=== PATIENT | male | born 1970 | race Caucasian/White ===

== ENCOUNTER 2017-05-21 09:46 | Inpatient (IN) | payer MEDICAID ==
[~2017-05-21] VITALS: Ht 172.7 cm; Wt 51.3 kg
[2017-05-21] MEDS ORDERED: LORAZEPAM INJ 2 MG/ML VIAL ONE ×2 (09:56→11:03)
--- NOTE | 2017-05-21 09:59 | NUR ---
[id number] FROM [address]: S/P POSSIBLE SEIZURE, UNWITNESSED. Hx OF SEIZURES. A/OX 3, BREATHING EVEN AND UNLABORED, NO SOB. VITALS STABLE, DISHEVELED APPEARANCE. NAD, SAFETY AND COMFORT MEASURES IN PLACE. AWAITING MD ORDERS.
[2017-05-21] MEDS ORDERED: LORAZEPAM INJ 2 MG/ML VIAL IV ONE ×2 (10:00→11:00)
--- NOTE | 2017-05-21 10:00 | NUR ---
NEW IV STARTED ON RFA, 18G. BLOOD DRAWN AND SENT TO LAB.
[2017-05-21 10:09] LABS: BASOPHILS % (AUTO) 0.4 % (0.0-2.0); EOSINOPHILS % (AUTO) 0.2 % (0.0-6.0); HEMATOCRIT 40 % (39-51); HEMOGLOBIN 13.7 g/dL (13.5-17.5); LYMPHOCYTES # (AUTO) 1.3 /CMM (0.8-4.8); LYMPHOCYTES % (AUTO) 17.9 % (20.0-44.0); MEAN CORPUSCULAR HGB CONC 34 g/dl (31.0-36.0); MEAN CORPUSCULAR VOLUME 100 fL (80-96); MONOCYTES # (AUTO) 0.8 /CMM (0.1-1.30); MONOCYTES % (AUTO) 11.3 % (2.0-12.0); NEUTROPHILS # (AUTO) 5.2 /CMM (1.8-8.9); NEUTROPHILS % (AUTO) 70.2 % (43.0-81.0); PLATELET COUNT (AUTO) 157 /CMM (150-450); RED BLOOD CELL COUNT(AUTO) 4.01 MIL/uL (4.5-6.0); WHITE BLOOD COUNT (AUTO) 7.3 K/uL (4.3-11.0)
[2017-05-21 10:21] LABS: INR 0.93 (0.85-1.15)
[2017-05-21 10:32] LABS: ALBUMIN 3.5 g/dL (3.4-5.0); BILIRUBIN,DIRECT 0.4 mg/dL (0.0-0.2); BILIRUBIN,TOTAL 1.4 mg/dL (0.2-1.0); CALCIUM, SERUM 9.3 mg/dL (8.5-10.1); CREATININE 1.1 mg/dL (0.6-1.3); TOTAL PROTEIN, SERUM 8.5 g/dL (6.4-8.2)
[2017-05-21 10:34] LABS: POTASSIUM 2.6 mmol/L (3.5-5.1)
[2017-05-21] MEDS ORDERED: POTASSIUM CHLORIDE 20 MEQ TAB.PRT.SR PO ONE ×2 (11:00→11:03)
[2017-05-21] MEDS ORDERED: Magnesium 1GM/D5W 100ML PREMIX PIGGYBACK IV ONE (11:00)
[2017-05-21] MEDS ORDERED: Magnesium 1GM/D5W 100ML PREMIX 100 ML IV ONE (11:03)
--- NOTE | 2017-05-21 11:08 | NUR ---
CALLED NURSING SUP. FOR TELE BED
--- NOTE | 2017-05-21 11:11 | NUR ---
PATIENT RETURNED FROM CT
--- NOTE | 2017-05-21 11:15 | NUR ---
[facility] WAS CALLED AND A PAGE WAS SENT OUT TO DR. REBOLLEDO.
--- NOTE | 2017-05-21 11:15 | NUR ---
[facility] PAGED, COLOR TESTER
[2017-05-21] MEDS ORDERED: MAGNESIUM HYDROXIDE 30 ML UDC PO PRN (11:30)
[2017-05-21] MEDS ORDERED: ZOLPIDEM TARTRATE 5 MG TABLET PO PRN (11:30)
[2017-05-21] MEDS ORDERED: ONDANSETRON HCL/PF 4 MG/2 ML VIAL IVP PRN (11:30)
[2017-05-21] MEDS ORDERED: MAG HYDROX/AL HYDROX/SIMETH 30 ML UDC PO PRN (11:30)
[2017-05-21] MEDS ORDERED: ACETAMINOPHEN 325 MG TABLET PO PRN (11:30)
[2017-05-21] MEDS ORDERED: Z GUARD REMEDY 2 OZ OINT TP PRN (11:30)
--- NOTE | 2017-05-21 11:33 | NUR ---
TELE 325-1,
--- NOTE | 2017-05-21 11:51 | NUR ---
REPORT GIVEN TO NADJA SHARPE FOR JORDAN UPON ADIMSSION.
--- NOTE | 2017-05-21 12:05 | NUR ---
PATIENT TRANSPORTED TO [facility] VIA ACLS PROTOCOL. RNNADJA TO PROVIDE JORDAN.
--- NOTE | 2017-05-21 12:15 | NUR ---
ROAD PACKER OPERATOR NOTES PATIENT ADMITTED TO UNIT, TRANSFERRED FROM ER DEPARTMENT. ARRIVED VIA GURNEY, REPORT OBTAINED FROM LINN SHARPE. PATIENT SLEEPING INTERMITTENTLY, EASILY AROUSABLE THROUGH VERBAL AND TACTILE STIMULI. BREATHING EVEN AND UNLABORED. NO SOB OR ACUTE DISTRESS NOTED. PATIENT DENIES ANY PAIN OR DISCOMFORT. IV SITE ON RFA INTACT AND PATENT. 1ST BAG OF MAGNESIUM 1G TO FINISH, 2ND BAG TO BE ADMINISTERED AT UNIT. PATIENT ORIENTED TO UNIT, STAFF, CALL LIGHT SYSTEM, ACTIVITIES, MEALTIMES AND MENU SYSTEM. PATIENT KEPT CLEAN, DRY AND COMFORTABLE. PATIENT ADMITTED UNDER MEDICAL SUPERVISION OF DR. REBOLLEDO, MADE AWARE OF PATIENT ARRIVAL. WILL CONTINUE TO MONITOR. BED LOCKED AND IN LOW POSITION. BILATERAL UPPER SIDE RAILS UP AND LOCKED. CALL LIGHT WITHIN EASY REACH
--- NOTE | 2017-05-21 12:20 | NUR ---
BEAM MACHINE OPERATOR NOTES PER ER REPORT FROM DELL ESTEVES. PATIENT TO RECEIVE 2G OF MAGNESIUM. 1ST BAG OF MAGNESIUM 1GM IN D5W ADMINISTERED IN ER, 2ND BAG UNABLE TO ADMINISTER AT ER DUE TO PATIENT BEING TRANSPORTED TO TELE FLOOR. PLACED CALL TO PHARMACY AND SPOKE WITH ONEIL. EXPLAINED SITUATION 2ND BAG OF MAGNESIUM 1G UNABLE TO SCAN AT TELE FLOOR. PER ONEIL, 2ND BAG MAY BE ADMINISTERED WITHOUT SCANNING, TO INCLUDE IN DOCUMENTATION. NOTED AND DOCUMENTED SEEN ABOVE.
[2017-05-21] MEDS: IV NS 0.9% 1,000 ML IV PRN ×2 (12:58→23:53)
[2017-05-21] MEDS ORDERED: Thiamine 100 MG in IV D5W 50 ML IV SCH (13:00)
[2017-05-21] MEDS ORDERED: Folic acid 1 MG in IV D5W 50 ML IV SCH (13:00)
[2017-05-21 16:00] VITALS: BP 128/83
--- NOTE | 2017-05-21 18:39 | NUR ---
CIVIL RIGHTS REPRESENTATIVE NOTES IV SITE ON RFA INTACT AND PATENT, NO BLEEDING OR SWELLING NOTED. WITH NS RUNNING AT 125CC/HR. WILL CONTINUE TO MONITOR
--- NOTE | 2017-05-21 18:40 | NUR ---
MIX TECHNICIAN NOTES PATIENT INSIDE ROOM ACCOMPANIED BY FRIEND. VERBALLY RESPONSIVE AND RESPONDS TO VERBAL AND TACTILE STIMULI. BREATHING EVEN AND UNLABORED. NO SOB OR ACUTE DISTRESS NOTED AT THIS TIME. DENIES ANY PAIN OR DISCOMFORT. PATIENT AFEBRILE, SKIN DRY AND WARM TO TOUCH. CONTINUE WITH TELEMETRY, WITH RHYTHM OF SINUS TACHYCARDIA WITH HR OF 105. NO CHANGES IN LOC NOTED AT THIS TIME. WILL ENDORSE TO INCOMING SHIFT FOR JORDAN. BED LOCKED AND IN LOW POSITION. ALL DUE MEDICATIONS GIVEN AND TOLERATED WELL. PROVIDED WITH CALM, SAFE, HAZARD-FREE ENVIRONMENT. CALL LIGHT WITHIN EASY REACH
--- NOTE | 2017-05-21 19:30 | NUR ---
FLAVORING MACHINE OPERATOR NOTES ST-122,ON BED A/O X2-3,HOMELESS,VISITOR AT BEDSIDE,NS AT 125 INFUSING VIA IV PUMP ON RFA.REPORTED BY BOX SEALING MACHINE FEEDER,MAGNESIUM LEVEL 1.2,THAT WAS AT 10:00 IN THE MORNING.PATIENT ALREADY GIVEN 2GM S OF MAGNESIUM THIS AFTERNOON.CHARGE NURSE MADE AWARE.SEIZURE PRECAUTION OBSERVED.SIDE RAILS PADDED.CALL LIGHT IN REACH,NEEDS ANTICIPATED.
[2017-05-21 20:00] VITALS: BP 122/76
[2017-05-21] MEDS: HYDROCODONE/APAP 5/325MG 1 EACH TABLET PO PRN (20:14)
--- NOTE | 2017-05-21 20:14 | NUR ---
LOSS PREVENTION DETECTIVE NOTES C/O GENERALIZED PAIN,HEAD TO TOE,5/10 ON PAIN SCALE.NORCO 5/325MG,1TAB PO GIVEN ORDERED FOR MODERATE PAIN.
[2017-05-21] MEDS: LORAZEPAM INJ 2 MG/ML VIAL IV PRN (23:42)
--- NOTE | 2017-05-21 23:42 | NUR ---
COMMERCIAL UNDERWRITER NOTES FEELING ANXIOUS,ATIVAN 1MG IV GIVEN ORDERED FOR ANXIETY
[2017-05-22] VITALS: BP 120/89
[2017-05-22 04:00] VITALS: BP 121/85
--- NOTE | 2017-05-22 06:07 | NUR ---
UX INTERACTION DESIGNER NOTES SR-87 ON TELE MONITOR,FAIRLY RESTED,NO SEIZURE ACTIVITY NOTED.PAIN MANAGEMENT EFFECTIVE.IVF IN PROGRESS.IN NO ACUTE DISTRESS.WILL ENDORSE TO DAY NURSE FOR JORDAN.
[2017-05-22 07:18] LABS: BASOPHILS % (AUTO) 0.3 % (0.0-2.0); HEMATOCRIT 39 % (39-51); HEMOGLOBIN 13.4 g/dL (13.5-17.5); LYMPHOCYTES # (AUTO) 0.8 /CMM (0.8-4.8); LYMPHOCYTES % (AUTO) 16.3 % (20.0-44.0); MEAN CORPUSCULAR HGB CONC 35 g/dl (31.0-36.0); MEAN CORPUSCULAR VOLUME 99 fL (80-96); MONOCYTES # (AUTO) 0.4 /CMM (0.1-1.30); MONOCYTES % (AUTO) 8.3 % (2.0-12.0); NEUTROPHILS # (AUTO) 3.7 /CMM (1.8-8.9); NEUTROPHILS % (AUTO) 72.1 % (43.0-81.0); PLATELET COUNT (AUTO) 123 /CMM (150-450); RDW COEFFICIENT OF VARIATION 13.6 (11.5-15.0); RED BLOOD CELL COUNT(AUTO) 3.87 MIL/uL (4.5-6.0); WHITE BLOOD COUNT (AUTO) 5.1 K/uL (4.3-11.0)
[2017-05-22 07:24] LABS: ALBUMIN 3.1 g/dL (3.4-5.0); BILIRUBIN,TOTAL 1.4 mg/dL (0.2-1.0); CALCIUM, SERUM 8.6 mg/dL (8.5-10.1); CREATININE 0.7 mg/dL (0.6-1.3); PHOSPHORUS 3.5 mg/dL (2.5-4.9); TOTAL PROTEIN, SERUM 7.5 g/dL (6.4-8.2)
--- NOTE | 2017-05-22 07:25 | NUR ---
HELP DESK SUPPORT SPECIALIST OPENING NOTES RECEIVED PATIENT AWAKE IN BED IN NO ACUTE SIGNS OF DISTRESS. A/O X 3, SAME VERBALLY RESPONSIVE WITH NO C/O PAIN OR DISCOMFORTS AT THIS TIME. ON ROOM AIR, BREATHING EVEN AND UNLABORED. ON TELE -MONITORING WITH CURRENT READING OF SINUS RHYTHM AND HR OF 83. IV ACCESS ON RFA INTACT AND PATENT WITH IVF OF NS @ 125ML/HR INFUSING, NO SIGNS OF INFILTRATIONS OR PHLEBITIS AT SITE. HOB ELEVATED. BED LOCKED AND IN LOW POSITION. CALL LIGHT IN REACH. WILL CONTINUE TO MONITOR PT ACCORDINGLY.
[2017-05-22 07:31] LABS: MAGNESIUM 1.8 mg/dL (1.8-2.4)
[2017-05-22 07:50] LABS: POTASSIUM 2.6 mmol/L (3.5-5.1)
[2017-05-22 08:00] VITALS: BP 126/71
[2017-05-22] MEDS: THIAMINE HCL 100 MG TABLET PO SCH (08:22)
[2017-05-22] MEDS: POTASSIUM CHLORIDE 20 MEQ TAB.PRT.SR PO SCH ×2 (09:01→10:30)
--- NOTE | 2017-05-22 09:44 | NUR ---
RN NOTES PATIENT SEEN AND EVALUATED BY DR REBOLLEDO THIS MORNING. PT WITH LOW POTASSIUM LEVEL OF 2.6 AND TO BE REPLACED WITH K-DUR 80MEQ. MG OF 1.8 WITH ORDER TO GIVE 2MG VIA IV. PT ALSO C/O DIARRHEA X5 SINCE LAST NIGHT, STOOL NOTED YELLOWISH AND SEMI-FORM, MD ORDER TO GIVE LOPERAMIDE 4MG X 1 AND 2MG EVERY AFTER LBM. WILL CARRY OUT ORDER.
[2017-05-22] MEDS ORDERED: LOPERAMIDE HCL (2 MG CAP) 2 MG CAPSULE PO ONE (10:00)
[2017-05-22] MEDS ORDERED: LOPERAMIDE HCL (2 MG CAP) 2 MG CAPSULE PO PRN (10:00)
[2017-05-22] MEDS: Magnesium 1GM/D5W 100ML PREMIX PIGGYBACK IV SCH ×2 (10:30→11:38)
[2017-05-22] MEDS: IV NS 0.9% 1,000 ML IV PRN ×2 (11:21→22:54)
--- NOTE | 2017-05-22 12:42 | NUR ---
[facility]. Pt. is a 46 year old male who was admitted to [facility] for seizures and altered mental status. ALEXIS met with pt. bedside. Pt. is alert and oriented x 4. Pt's Michelle is bedside. Pt. states he resides at an encampment in [place] with Michelle and his dog Cho Cho. Pt. has been homeless for about a year. Prior to being homeless, pt. was living in an apartment in [place]. Pt. was evicted from that apartment and has been homeless since. Both pt. and his Michelle receives General Relief and food stamps. ALEXIS offered pt. usp placement, however pt. declined. Pt. is currently linked to services through [facility] [phone]. Pt. is an alcoholic and drinks a bottle of vodka per day. Pt. has been to [facility] a couple of years ago. SW offered pt. alcohol treatment program if he would like to attend. Pt. declined and states he wants to go back to the streets. ALEXIS gave pt. the following homeless resources: [facility] ; [facility], [facility] and list of homeless shelters which include [facility], [facility], [facility], [facility] and [employer]. [employer]. SW to give pt. two bus tokens prior to discharge. Pt. to sign Homeless patient Waiver form prior to discharge.
[2017-05-22] MEDS: FOLIC ACID 1 MG TABLET PO SCH (13:08)
[2017-05-22] MEDS: LORAZEPAM INJ 2 MG/ML VIAL IV PRN ×2 (15:51→21:03)
--- NOTE | 2017-05-22 15:53 | NUR ---
RN NOTES PATIENT NOTED SLIGHTLY RESTLESS AND ANXIOUS, REQUESTED ATIVAN 1MG IVP AND WAS GIVEN. WILL CONTINUE TO MONITOR.
[2017-05-22 16:07] VITALS: BP 118/83
--- NOTE | 2017-05-22 18:48 | NUR ---
MS RN CLOSING NOTES PATIENT AWAKE AND WATCHING TV IN BED. A/O X 3, AMBULATORY AND ABLE TO MAKE NEEDS KNOWN VERBALLY. PT TOLERATING ROOM AIR WITH NO ACUTE SIGNS OF RESPIRATORY DISTRESS NOTED. IV ACCESS ON RFA INTACT AND PATENT WITH IVF OF NS @ 125ML/HR INFUSING, NO SIGNS OF INFILTRATIONS OR PHLEBITIS AT SITE NOTED. HOB KEPT ELEVATED. BED LOCKED AND IN LOW POSITION. CALL LIGHT AND BEDSIDE TABLE KEPT WITHIN PT'S REACH. ALL NEEDS AND CARE ATTENDED WELL. WILL ENDORSED TO RESIDENTIAL SALES ASSOCIATE NURSE FOR JORDAN.
--- NOTE | 2017-05-22 19:10 | NUR ---
MS RN NOTES RECEIVED PATIENT IN BED, AWAKE, A/O X 3, VERBALLY RESPONSIVE. WATCHING TV AT THIS TIME. PT TOLERATING ROOM AIR WITH NO ACUTE SIGNS OF RESPIRATORY DISTRESS NOTED. 02 SAT IS 98 % ON RA. IV SITE ON RFA INTACT AND PATENT WITH IVF OF NS @ 125ML/HR INFUSING WELL, NO SIGNS OF INFILTRATIONS OR PHLEBITIS NOTED. NO C/O APIN OR DISCOMFORT AT THIS TIME. BED LOCKED AND IN LOW POSITION. CALL LIGHT AND BEDSIDE TABLE KEPT WITHIN PT'S REACH. ALL NEEDS ATTENDED AND MET. SAFETY AND SEIZURE PRECAUTIONS OBSERVED. WILL CONTINUE TO MONITOR.
[2017-05-22 20:00] VITALS: BP 113/87
--- NOTE | 2017-05-22 20:30 | NUR ---
PT'S POTASSIUM LEVEL WAS 2.6 THIS MORNING AND REPLACED WITH KDUR 80 MEQ BY DAYSHIFT NURSE , HOW EVER PT DOESN'T HAVE AN ORDER FOR LABS IN AM, INFORMED DR. FIORE WITH ORDER FOR BMP IN AM, NOTED AND CARRIED OUT.
[2017-05-23] MEDS: HYDROCODONE/APAP 5/325MG 1 EACH TABLET PO PRN (02:31)
[2017-05-23] MEDS: LORAZEPAM INJ 2 MG/ML VIAL IV PRN (06:06)
[2017-05-23] MEDS: IV NS 0.9% 1,000 ML IV PRN (06:11)
--- NOTE | 2017-05-23 06:38 | NUR ---
MS RN NOTES PATIENT IN BED, AWAKE, A/O X 3, VERBALLY RESPONSIVE. WATCHING TV AT THIS TIME. 02 SATURATION IS 99 % ON RA. NO ACUTE SIGNS OF RESPIRATORY DISTRESS NOTED. IV SITE ON RFA INTACT AND PATENT WITH IVF OF NS @ 125ML/HR INFUSING WELL, NO SIGNS OF INFILTRATIONS OR PHLEBITIS NOTED. NO C/O PAIN OR DISCOMFORT AT THIS TIME. BED LOCKED AND IN LOW POSITION. CALL LIGHT AND BEDSIDE TABLE KEPT WITHIN PT'S REACH. ALL NEEDS ATTENDED AND MET. SAFETY AND SEIZURE PRECAUTIONS OBSERVED. WILL ENDORSE TO NEXT SHIFT FOR JORDAN.
[2017-05-23 07:39] LABS: CALCIUM, SERUM 8.4 mg/dL (8.5-10.1); CREATININE 0.6 mg/dL (0.6-1.3); POTASSIUM 3.9 mmol/L (3.5-5.1)
--- NOTE | 2017-05-23 07:47 | NUR ---
MS RN OPENING NOTES PATIENT IS ALERT AND ORIENTED X4. RECEIVED PATIENT IN NO APPARENT DISTRESS. BEDSIDE RAILS ARE UPX2. BED IS LOCKED AND LOWERED. CALL LIGHT IS WITHIN REACH. IV LINE IS PATENT AND INTACT. WILL CONTINUE TO MONITOR.
[2017-05-23 08:00] VITALS: BP 125/86
[2017-05-23] MEDS: THIAMINE HCL 100 MG TABLET PO SCH (09:16)
[2017-05-23] MEDS: FOLIC ACID 1 MG TABLET PO SCH (09:16)
--- NOTE | 2017-05-23 13:35 | NUR ---
PATIENT DISCHARGED IN STABLE CONDITION. IN NO APPARENT DISTRESS. ALL NEEDS WERE MET. REMOVED IV LINE. REMOVED ID BAND. EXITCARE INSTRUCTIONS PROVIDED TO THE PATIENT. PRESCRIPTION GIVEN TO THE PATIENT. PATIENT LEFT HOSPITAL WITH GIRLFRIEND MADAI CHRISTIE.
== END 2017-05-23 13:36 | disposition home or self-care (01) | DRG 775 ==
LOC: ER 09:47 → TELE 11:43 → MED 05-22 11:19
PROVIDERS: ADMIT Internal Medicine; ATTEND Internal Medicine
DX: F10.231 Alcohol dependence with withdrawal delirium (principal); R56.9 Unspecified convulsions; E87.1 Hypo-osmolality and hyponatremia; E87.6 Hypokalemia; Y90.0 Blood alcohol level of less than 20 mg/100 ml; F41.9 Anxiety disorder, unspecified; F17.200 Nicotine dependence, unspecified, uncomplicated; R74.0 Nonspecific elevation of levels of transaminase and lactic acid dehydrogenase [LDH]
CPT/HCPCS: 36415; 70450-TC; 80048-TC; 80053-TC; 80061-TC; 80076-TC; 83735-TC; 84100-TC; 85025-TC; 85730-TC; 87081-TC; A4606; G0480; J2060; J3411; J3475; J3490; J7030; J7060; Z7610

== ENCOUNTER 2017-08-20 13:22 | Inpatient (IN) | payer MEDICAID ==
[~2017-08-20] VITALS: Ht 185.4 cm; Wt 76.3 kg
--- NOTE | 2017-08-20 13:30 | NUR ---
[id number] FROM [address]: ETOH INTOXICATED. S/P WITNESSED SEIZUREL. AFEBRILE. NOT IN DISTRESS. VSS/ SEIZXURE PRECAUTION OBSERVE.
[2017-08-20] MEDS ORDERED: IV NS 0.9% 1,000 ML BAG IV ONE (14:00)
[2017-08-20] MEDS ORDERED: LORAZEPAM INJ 2 MG/ML VIAL IVP ONE (14:00)
[2017-08-20] MEDS ORDERED: LORAZEPAM INJ 2 MG/ML VIAL ONE (14:10)
[2017-08-20 14:11] LABS: BASOPHILS % (AUTO) 0.7 % (0.0-2.0); EOSINOPHILS % (AUTO) 0.6 % (0.0-6.0); HEMATOCRIT 40 % (39-51); LYMPHOCYTES # (AUTO) 0.8 /CMM (0.8-4.8); LYMPHOCYTES % (AUTO) 12.1 % (20.0-44.0); MEAN CORPUSCULAR HEMOGLOBIN 36 PG (26.0-33.0); MEAN CORPUSCULAR HGB CONC 35 g/dl (31.0-36.0); MEAN CORPUSCULAR VOLUME 102 fL (80-96); MONOCYTES # (AUTO) 0.5 /CMM (0.1-1.30); NEUTROPHILS # (AUTO) 5.5 /CMM (1.8-8.9); NEUTROPHILS % (AUTO) 79.6 % (43.0-81.0); PLATELET COUNT (AUTO) 128 /CMM (150-450); RDW COEFFICIENT OF VARIATION 14.4 (11.5-15.0); WHITE BLOOD COUNT (AUTO) 6.8 K/uL (4.3-11.0)
[2017-08-20 14:16] LABS: CARBON DIOXIDE 23 mmol/L (21-32); CHLORIDE 95 mmol/L (98-107); CREATININE 1.1 mg/dL (0.6-1.3); GLUCOSE 145 mg/dL (74-106); POTASSIUM 3.4 mmol/L (3.5-5.1); SODIUM SERUM 131 mmol/L (136-145); UREA NITROGEN, BLOOD 12 mg/dL (7-18)
--- NOTE | 2017-08-20 14:20 | NUR ---
IV ACCESS WIRELESS SALES CONSULTANT. MATERIAL PROCESSOR AT FOR BLOOD DRAW.
[2017-08-20 14:22] LABS: ALANINE AMINOTRANSFERASE 71 U/L (12-78); ALBUMIN 4.1 g/dL (3.4-5.0); ALCOHOL, BLOOD < 3 mg/dL (0-0); ALKALINE PHOSPHATASE 120 U/L (46-116); BILIRUBIN,DIRECT 0.5 mg/dL (0.0-0.2); TOTAL PROTEIN, SERUM 8.7 g/dL (6.4-8.2)
[2017-08-20 14:23] LABS: ACETAMINOPHEN 0 ug/ml (10-30); SALICYLATE < 2.8 mg/dL (2.8-20.0)
[2017-08-20 14:51] LABS: APPEARANCE,URINE Slightly Cloudy (CLEAR); BILIRUBIN,URINE SMALL (NEGATIVE); BLOOD, URINE Moderate Ery/uL (NEGATIVE); COLOR,URINE Dark (YELLOW); KETONES,URINE 15 (NEGATIVE); LEUKOCYTE ESTERASE ,URINE Negative (NEGATIVE); NITRITE, URINE Negative (NEGATIVE); PROTEIN,URINE >=300 mg/dl (NEGATIVE); UGLUCOSE Negative (NEGATIVE)
[2017-08-20 14:54] LABS: ASPARTATE AMINOTRANSFERASE 166 U/L (15-37)
[2017-08-20] MEDS ORDERED: POTASSIUM CHLORIDE 20 MEQ TAB.PRT.SR PO ONE ×2 (14:59→15:00)
[2017-08-20 15:01] LABS: BACTERIA,URINE Few /HPF (None Seen); SQUAMOUS EPITHELIAL CELL,UR Rare /HPF (None Seen)
--- NOTE | 2017-08-20 15:22 | NUR ---
DR TJ MAZA PAGED FOR ADMIT
--- NOTE | 2017-08-20 15:26 | NUR ---
CALLED NURSE SUP FOR TELE BED
--- NOTE | 2017-08-20 16:00 | NUR ---
321 TELE Addendum: 08/20/17 at 1612 by IRVINARKS [id number] TELE
--- NOTE | 2017-08-20 16:24 | NUR ---
REPORT GIVEN TO VIVIANE SAHRPE FOR TELE 322.
[2017-08-20] MEDS ORDERED: Z GUARD REMEDY 2 OZ OINT TP PRN (16:30)
[2017-08-20] MEDS ORDERED: ZOLPIDEM TARTRATE 5 MG TABLET PO PRN (16:30)
[2017-08-20] MEDS ORDERED: ACETAMINOPHEN 325 MG TABLET PO PRN (16:30)
[2017-08-20] MEDS ORDERED: MAG HYDROX/AL HYDROX/SIMETH 30 ML UDC PO PRN (16:30)
[2017-08-20] MEDS ORDERED: MAGNESIUM HYDROXIDE 30 ML UDC PO PRN (16:30)
[2017-08-20] MEDS ORDERED: HYDROCODONE/APAP 5/325MG 1 EACH TABLET PO PRN (16:30)
[2017-08-20] MEDS ORDERED: ONDANSETRON HCL/PF 4 MG/2 ML VIAL IVP PRN (16:30)
[2017-08-20 16:45] VITALS: BP 122/88
[2017-08-20] MEDS: THIAMINE HCL 100 MG TABLET PO SCH (16:59)
[2017-08-20] MEDS: FOLIC ACID 1 MG TABLET PO SCH (16:59)
--- NOTE | 2017-08-20 18:05 | NUR ---
ORGANIC CHEMISTRY TEACHER ADMITTING NOTES PATIENT ADMITTED TO UNIT VIA [facility] AT 1640 ACCOMPANIED BY ER NURSE SEPIDEH. A/O X 4 , SAME ABLE TO VERBALIZED NEEDS AND CONCERNS. PT IS AMBULATORY AND TRANSFERRED TO BED, ORIENTED TO HIS ROOM AND UNIT.PT WITH DIAGNOSIS OF ALCOHOLIC SEIZURE. V/S TAKEN AND RECORDED. HEAD TO TOE ASSESSMENT DONE. PHOTOS OF SKIN TAKEN AND FILED ON CHART. PT'S LUNGS CLEAR ON AUSCULTATION. ABDOMEN SOFT, NON-DISTENDED WITH POSITIVE BOWEL SOUNDS ON FOUR QUADRANTS. PT WITH TWO IV ACCESS: LEFT AC G# 20 AND RIGHT FA G#18. IVF OF D5 1/2 NS @ 150ML /HR TO BE STARTED ORDERED. SEIZURE AND SAFETY PRECAUTIONS INITIATED. BED PLACED ON LOW/LOCKED POSITION WITH SIDE-RAILS UP X 2 AND PADDED. CALL LIGHT PLACED WITHIN EASY REACH OF PT. MD INFORMED OF PT'S ADMISSION. ENDORSED TO PLATEN PRESS OPERATOR NURSE SARAH TO CONTINUE ASSESSMENT AND MONITORING PT. Addendum: 08/20/17 at 2001 by CLEO GUPTA RN ADDENDUM: PATIENT PLACED ON TELE-MONITORING WITH READING OF SINUS RTHYTMN AND HR OF 93, NO CARDIAC DISTRESS NOTED. NO EPISODE OF SEIZURE ACTIVITY NOTED SINCE ADMISSION. WILL CONTINUE TO MONITOR
[2017-08-20] MEDS: IV D5/0.45 NACL 1,000 ML IV PRN (18:20)
--- NOTE | 2017-08-20 19:30 | NUR ---
TELE / SOFTWARE INSTALLER; RECEIVED PT IN BED AWAKE , ALERT AND VERBALLY RESPONSIVE. NO SEIZURE'S ACTIVITIES NOTED. BREATHING NON LABORED. ON SEASONAL CUSTOMER SERVICE ASSOCIATE ON. IVF ON PROGRESS. PT SAID WHEN ASKED HE OK. BED ON LOWER POSITION AND LOCKED FOR SAFETY. SIDE RAILS X2 UPPER PART OF BED ARE UP FOR SAFETY AND PADDED FOR SEIZURE'S PRECAUTION. CALL LIGHT WITHIN REACH. SITTER PRESENT IN THE ROOM. WILL CONTINUE TO MONITOR.
[2017-08-20 20:00] VITALS: BP 126/77
[2017-08-20 22:50] VITALS: BP 128/79
[2017-08-20] MEDS: LORAZEPAM INJ 2 MG/ML VIAL IV PRN (22:51)
--- NOTE | 2017-08-20 22:51 | NUR ---
EMBLEM CUTTER NOTES C/O ANXIETY,ATIVAN 1MG IV GIVEN ORDERED.
[2017-08-21] VITALS: BP 117/67
[2017-08-21 02:50] VITALS: BP 119/75
[2017-08-21] MEDS: LORAZEPAM INJ 2 MG/ML VIAL IV PRN ×4 (02:59→20:17)
[2017-08-21 04:00] VITALS: BP 113/72
[2017-08-21] MEDS: IV D5/0.45 NACL 1,000 ML IV PRN (05:28)
--- NOTE | 2017-08-21 06:27 | NUR ---
TELE/SOLAR PV INSTALLER; SLEPT FAIRLY. IVF ON PROGRESS. NO SEIZURE'S ACTIVITIES. VOIDED IN THE BATHROOM WITH SITTER HELP. ALSO WITH BM X2 LOOSE BROWN COLOR.WILL CONTINUE TO MONITOR CALL LIGHT WITHIN REACH. NO SEIZURE'S ACTIVITIES NOTED. IVF ON PROGRESS. WILL ENDORSE TO THE DAY SHIFT NURSR FOR CONTINUITY OF CARE.
[2017-08-21 06:39] LABS: INR 1.02 (0.87-1.13)
[2017-08-21 06:50] LABS: ALBUMIN 3.3 g/dL (3.4-5.0); BILIRUBIN,TOTAL 1.5 mg/dL (0.2-1.0); CALCIUM, SERUM 8.7 mg/dL (8.5-10.1); CREATININE 0.6 mg/dL (0.6-1.3); MAGNESIUM 1.8 mg/dL (1.8-2.4); PHOSPHORUS 3.1 mg/dL (2.5-4.9); POTASSIUM 2.9 mmol/L (3.5-5.1); TOTAL PROTEIN, SERUM 7.3 g/dL (6.4-8.2)
[2017-08-21 07:00] LABS: THYROID STIMULATING HORMONE 3.417 uIU/mL (0.358-3.74)
--- NOTE | 2017-08-21 07:15 | NUR ---
RN OPENING NOTE RECEIVED PT. PT IN BED RESTING. C/O ANXIETY, WILL ADDRESS PHARMACOLOGICALLY. SAFETY MEASURES IN PLACE, CALL LIGHT IN REACH. WILL CONTINUE TO MONITOR.
[2017-08-21 07:41] LABS: BASOPHILS % (AUTO) 0.1 % (0.0-2.0); EOSINOPHILS % (AUTO) 2.5 % (0.0-6.0); HEMATOCRIT 36 % (39-51); HEMOGLOBIN 12.7 g/dL (13.5-17.5); LYMPHOCYTES % (AUTO) 19.8 % (20.0-44.0); MEAN CORPUSCULAR HEMOGLOBIN 37 PG (26.0-33.0); MEAN CORPUSCULAR HGB CONC 36 g/dl (31.0-36.0); MEAN CORPUSCULAR VOLUME 102 fL (80-96); MONOCYTES # (AUTO) 0.5 /CMM (0.1-1.30); MONOCYTES % (AUTO) 9.9 % (2.0-12.0); NEUTROPHILS # (AUTO) 3.6 /CMM (1.8-8.9); NEUTROPHILS % (AUTO) 67.7 % (43.0-81.0); PLATELET COUNT (AUTO) 122 /CMM (150-450); RDW COEFFICIENT OF VARIATION 14.6 (11.5-15.0); RED BLOOD CELL COUNT(AUTO) 3.47 MIL/uL (4.5-6.0); WHITE BLOOD COUNT (AUTO) 5.2 K/uL (4.3-11.0)
[2017-08-21] MEDS: FOLIC ACID 1 MG TABLET PO SCH (08:28)
[2017-08-21] MEDS: THIAMINE HCL 100 MG TABLET PO SCH (08:28)
[2017-08-21 09:00] VITALS: BP 119/81
[2017-08-21] MEDS ORDERED: POTASSIUM CHLORIDE 20 MEQ TAB.PRT.SR PO ONE (10:30)
[2017-08-21] MEDS: POTASSIUM CL. PREMIX PERIPHER. 50 ML IV SCH ×2 (11:08→12:27)
--- NOTE | 2017-08-21 12:49 | NUR ---
Social service consult requested by Dr. Coles for homelessness and ETOH. Pt. is a 46 year old male who was admitted to [facility] for alcohol withdrawals and seizures. ALEXIS met with pt. bedside. Pt. is alert and oriented x 4. SW is familiar with pt.from a previous admission in May 2017. Pt. states he resides at a tent in an encampment in [place] with hsi Michelle and his dog Esequiel Iraheta. Pt. has been homeless for about a year. Prior to being homeless, pt. was living in an apartment in [place]. Pt. was evicted from that apartment and has been homeless since. Both pt. and his Michelle receives General Relief ($250) and food stamps. ALEXIS offered pt. nursing home placement, however pt. declined. Pt. is currently linked to services through [facility] [phone]. Pt. is an alcoholic and drinks a bottle of vodka per day. ALEXIS offered pt. alcohol treatment program if he would like to attend. Pt. declined and states he wants to go back to the streets. ALEXIS to offer pt. homeless resources and nursing home resources once pt. is medically cleared for discharge.
[2017-08-21 15:58] VITALS: BP 117/75
--- NOTE | 2017-08-21 19:30 | NUR ---
RN INITIAL NOTES: RECEIVED REPORT FROM ADI SHARPE, PT IN BED AWAKE, A/O X3, ON RA, RESPIRATION EVEN AND UNLABORED, DENIES ANY PAIN OR DISCOMFORT AT THIS TIME, LEFT AC IV ACCESS PATENT AND FLUSHING WELL, ON HL, NOTED DRY BLOOD AROUND DRESSING. IV ACCESS FREE FROM REDNESS, NOT INFILTRATED. PT REFUSING IVF, DESPITE PROVIDING EDUCATION, MD AWARE. SIDE RAILS PADDED, SUCTION SET UP SECURED. DISCUSSED PLAN OF CARE TO THE PT. SAFETY PRECAUTIONS FOR FALL INITIATED CALL LIGHT IN REACH WILL CONTINUE MONITORING PT.
--- NOTE | 2017-08-21 19:34 | NUR ---
RN CLOSING NOTE PT IN BED RESTING NO S/S OF RESP DISTRESS OR SOB. NO C/O PAIN. SAFETY MEASURES IN PLACE, CALL LIGHT IN REACH. ENDORSED TO FROZEN MEAT CUTTER FOR JORDAN.
[2017-08-21 20:00] VITALS: BP 148/72
--- NOTE | 2017-08-21 20:00 | NUR ---
RN NOTES: PT REFUSED IVF STATED HE'S BEEN DRINKING ENOUGH WATER AND BEEN EATING, EDUCATION PROVIDED TO THE PT, STILL REFUSED IVF, MADE AWARE
--- NOTE | 2017-08-21 20:17 | NUR ---
PRN ATIVAN: PT C/O ANXIETY REQUESTING FOR HIS ATIVAN, VS TAKEN AND RECORDED, PRN ATIVAN 1MG IVP ADMINISTERED TO THE PT AT THIS TIME, WILL CONTINUE TO MONITOR AND REASSESS
[2017-08-22] MEDS: LORAZEPAM INJ 2 MG/ML VIAL IV PRN ×2 (01:25→10:12)
--- NOTE | 2017-08-22 01:26 | NUR ---
PRN ATIVAN: PT C/O ANXIETY REQUESTING FOR ATIVAN, PRN ATIVAN 1MG IVP ADMINISTERED AT THIS TIME, WILL CONTINUE TO MONITOR AND REASSESS
--- NOTE | 2017-08-22 02:24 | NUR ---
RN NOTES: SEEN PT SLEEPING AT THIS TIME, APPEARS COMFORTABLE, WILL CONTINUE MONITORING PT
[2017-08-22] MEDS: IV D5/0.45 NACL 1,000 ML IV PRN (02:31)
[2017-08-22 06:22] LABS: CALCIUM, SERUM 9.3 mg/dL (8.5-10.1); CREATININE 0.7 mg/dL (0.6-1.3); MAGNESIUM 1.6 mg/dL (1.8-2.4); PHOSPHORUS 4.3 mg/dL (2.5-4.9); POTASSIUM 3.1 mmol/L (3.5-5.1)
[2017-08-22 06:26] LABS: BASOPHILS % (AUTO) 0.4 % (0.0-2.0); EOSINOPHILS % (AUTO) 4.5 % (0.0-6.0); HEMATOCRIT 38 % (39-51); LYMPHOCYTES # (AUTO) 1.4 /CMM (0.8-4.8); LYMPHOCYTES % (AUTO) 25.9 % (20.0-44.0); MEAN CORPUSCULAR HEMOGLOBIN 35 PG (26.0-33.0); MEAN CORPUSCULAR HGB CONC 34 g/dl (31.0-36.0); MEAN CORPUSCULAR VOLUME 104 fL (80-96); MONOCYTES # (AUTO) 0.6 /CMM (0.1-1.30); MONOCYTES % (AUTO) 10.6 % (2.0-12.0); NEUTROPHILS # (AUTO) 3.3 /CMM (1.8-8.9); NEUTROPHILS % (AUTO) 58.6 % (43.0-81.0); PLATELET COUNT (AUTO) 128 /CMM (150-450); RDW COEFFICIENT OF VARIATION 14.3 (11.5-15.0); RED BLOOD CELL COUNT(AUTO) 3.67 MIL/uL (4.5-6.0); WHITE BLOOD COUNT (AUTO) 5.5 K/uL (4.3-11.0)
--- NOTE | 2017-08-22 06:54 | NUR ---
RN CLOSING NOTES: PT IN BED, SLEEPING, AROUSES TO TACTILE STIMULI, IV ACCESS PATENT AND FLUSHING WELL, ON HL. PT CONTINUE TO REFUSED FOR IVF. SAFETY PRECAUTIONS FOR FALL REMAINS ENGAGED, CALL LIGHT IN REACH, WILL ENDORSE TO DAY RN FOR JORDAN.
--- NOTE | 2017-08-22 07:10 | NUR ---
RN OPENING NOTES RECEIVED PT. IN BED A&OX4. BREATHING UNLABORED, AND EVENLY ON ROOM AIR. NO S/S OF ACUTE DISTRESS. IV FLUIDS AT BEDSIDE. FOUND PT.'S IV ON THE FLOOR, NO S/S OF ACTIVE BLEEDING AT THIS TIME FROM IV SITE. BED IS IN LOWEST, AND LOCKED POSITION. 2 SIDE RAILS UP, AND INSTRUCTED PT. TO USE CALL LIGHT FOR ASSISTANCE. ALL NEEDS MET, WILL CONTINUE TO ASSESS AND MONITOR.
[2017-08-22 08:00] VITALS: BP 111/75
[2017-08-22] MEDS: THIAMINE HCL 100 MG TABLET PO SCH (08:12)
[2017-08-22] MEDS: FOLIC ACID 1 MG TABLET PO SCH (08:12)
[2017-08-22] MEDS: POTASSIUM CHLORIDE 20 MEQ TAB.PRT.SR PO SCH ×2 (11:01→13:23)
[2017-08-22] MEDS ORDERED: Magnesium 1GM/D5W 100ML PREMIX 100 ML IV SCH (12:30)
[2017-08-22] MEDS ORDERED: MAGNESIUM OXIDE 400 MG TABLET PO ONE (13:00)
--- NOTE | 2017-08-22 14:44 | NUR ---
Finishing Technician met with pt and provided him with referrals to homeless/shelters, food resources and substance abuse treatment facilities (copies were provided to pt) as pt is discharging on this date. Pt happily accepted the copies and stated, "Great I have a list with numbers." SW encouraged pt to utilize resources which he agreed to do so.
--- NOTE | 2017-08-22 15:41 | NUR ---
PITCH FILLER PT. WAS DISCHARGED IN STABLE CONDITION. DISCHARGE INSTRUCTIONS WERE PROVIDED WITH EDUCATION, AND PT. SIGNED DISCHARGE PACKET. BELONGINGS LIST WAS CHECKED, AND SIGNED. PT. WAS GIVEN A $6.00 FAIR BEFORE DISCHARGE. PICTURES WERE TAKEN AND PLACED IN CHART. PT. WAS OFFERED A WHEELCHAIR BUT PT. REFUSED. ALL QUESTIONS ANSWERED. PT. WAS PROVIDED CREAM DUMPER WITH RESOURCES FOR A FPC, AND ALCOHOL REHABILITATION. PT. LEFT WITH DISCHARGE PACKET IN HAND.
== END 2017-08-22 15:30 | disposition home or self-care (01) | DRG 53 ==
LOC: ER 13:24 → TELE 16:23 → MED 08-21 11:50
DX: G40.509 Epileptic seizures related to external causes, not intractable, without status epilepticus (principal); F10.231 Alcohol dependence with withdrawal delirium; D69.6 Thrombocytopenia, unspecified; E87.1 Hypo-osmolality and hyponatremia; K70.10 Alcoholic hepatitis without ascites; E87.6 Hypokalemia; F41.9 Anxiety disorder, unspecified; Z00.01 Encounter for general adult medical examination with abnormal findings; F12.929 Cannabis use, unspecified with intoxication, unspecified; F17.200 Nicotine dependence, unspecified, uncomplicated
CPT/HCPCS: 36415; 80048-TC; 80053-TC; 80061-TC; 80076-TC; 80305; 81000-TC; 82746; 83735-TC; 84100-TC; 84443-TC; 85025-TC; 85610-TC; 87081-TC; A4606; G0480; J2060; J3475; J3480; J3490; J7030; Z7610

== ENCOUNTER 2018-07-20 08:18 | Emergency (ER) | payer MEDICAID ==
[~2018-07-20] VITALS: Ht 185.4 cm; Wt 68.5 kg
--- NOTE | 2018-07-20 08:18 | NUR ---
PIETRO [address] FOR WITNESSED SEIZURE FOR 1 MIN. BG 115. TO ER BED 11, HOOKED TO MONITOR, CHANGED TO GOWN, PROVIDED W WARM BLANKET, SEIZURE PRECAUTIONS APPLIED, AWAITING MD LOERA.
--- NOTE | 2018-07-20 08:20 | NUR ---
SEEN AND EXAMINED BY DR. MADRID.
[2018-07-20] MEDS ORDERED: LORAZEPAM INJ 2 MG/ML VIAL IVP ONE (08:30)
[2018-07-20] MEDS ORDERED: IV NS 0.9% 1,000 ML BAG IV ONE (08:30)
[2018-07-20] MEDS ORDERED: LORAZEPAM INJ 2 MG/ML VIAL ONE ×2 (08:35→14:58)
[2018-07-20 08:37] LABS: BASOPHILS % (AUTO) 0.8 % (0.0-2.0); EOSINOPHILS % (AUTO) 3.4 % (0.0-6.0); HEMATOCRIT 40 % (39-51); HEMOGLOBIN 13.3 g/dL (13.5-17.5); LYMPHOCYTES # (AUTO) 2.2 /CMM (0.8-4.8); MEAN CORPUSCULAR HGB CONC 34 g/dl (31.0-36.0); MEAN CORPUSCULAR VOLUME 105 fL (80-96); MONOCYTES # (AUTO) 0.6 /CMM (0.1-1.30); MONOCYTES % (AUTO) 9.4 % (2.0-12.0); NEUTROPHILS # (AUTO) 2.9 /CMM (1.8-8.9); NEUTROPHILS % (AUTO) 49.4 % (43.0-81.0); PLATELET COUNT (AUTO) 139 /CMM (150-450); RED BLOOD CELL COUNT(AUTO) 3.78 MIL/uL (4.5-6.0); WHITE BLOOD COUNT (AUTO) 5.9 K/uL (4.3-11.0)
--- NOTE | 2018-07-20 08:39 | NUR ---
ENDOSCOPY RN AT BEDSIDE
--- NOTE | 2018-07-20 08:41 | NUR ---
WHEELED OUT VIA RNEY FOR CT SCAN
[2018-07-20 08:42] LABS: CALCIUM, SERUM 8.9 mg/dL (8.5-10.1); CARBON DIOXIDE 23 mmol/L (21-32); CHLORIDE 101 mmol/L (98-107); CREATININE 0.9 mg/dL (0.6-1.3); GLUCOSE 125 mg/dL (74-106); POTASSIUM 3.8 mmol/L (3.5-5.1); SODIUM SERUM 139 mmol/L (136-145); UREA NITROGEN, BLOOD 10 mg/dL (7-18)
--- NOTE | 2018-07-20 08:42 | NUR ---
Marleny moss in [facility] - 07/20/18 at 1412 by YODIT WHEELED OUT VIA BHUPINDER FOR CT SCAN.
[2018-07-20 08:48] LABS: ALANINE AMINOTRANSFERASE 91 U/L (12-78); ALBUMIN 3.9 g/dL (3.4-5.0); ALCOHOL, BLOOD < 3 mg/dL (0-0); ALKALINE PHOSPHATASE 109 U/L (46-116); ASPARTATE AMINOTRANSFERASE 153 U/L (15-37); BILIRUBIN,DIRECT 0.2 mg/dL (0.0-0.2); TOTAL PROTEIN, SERUM 7.8 g/dL (6.4-8.2)
--- NOTE | 2018-07-20 10:18 | NUR ---
URINE SAMPLE SENT TO LAB
--- NOTE | 2018-07-20 12:06 | NUR ---
PT IN BED ASLEEP, EASILY AROUSED BY VOICE. HOOKED TO MONITOR. WILL CONTINUE TO MONITOR ACCORDINGLY
--- NOTE | 2018-07-20 14:52 | NUR ---
FISH AND WILDLIFE BIOLOGIST CALLED TO INFORM US THAT PT WILL BE TRANSFERRED TO [facility] TO DR SAMUELS. WILL ADVISE WHEN BEDS ARE AVAILABLE.
[2018-07-20] MEDS ORDERED: LORAZEPAM INJ 2 MG/ML VIAL IV ONE (15:00)
--- NOTE | 2018-07-20 17:06 | NUR ---
PT IN BED ASLEEP, EASILY ASROUSED BY VOICE, HOOKED TO MONITOR, VSS, SEIZURE PRECAUTIONS MAINTAINED. WILL CONTINE TO MONITOR.
[2018-07-20 18:52] VITALS: BP 138/90
--- NOTE | 2018-07-20 19:00 | NUR ---
PT IN BED COMFORTABLY ASLEEP, EASILY ASROUSED BY VOICE, HOOKED TO MONITOR, VSS, SEIZURE PRECAUTIONS MAINTAINED. WILL CONTINE TO MONITOR. KEPT SAFE AND WARM
--- NOTE | 2018-07-20 19:45 | NUR ---
REPORT GIVEN TO REJI SHARPE FOR JORDAN
--- NOTE | 2018-07-20 20:11 | NUR ---
PT RECEIVED FROM DELL MENDOZA FOR JORDAN. PT IN BED. NAD
--- NOTE | 2018-07-20 20:32 | NUR ---
REPORT GIVEN TO DELL QUAN @ [facility] FOR CONT OF CARE. PT EN ROUTE VIA ALS.
== END 2018-07-20 20:35 | disposition short-term general hospital (02) ==
LOC: ER 08:20
DX: F10.231 Alcohol dependence with withdrawal delirium (principal); F41.9 Anxiety disorder, unspecified; F17.200 Nicotine dependence, unspecified, uncomplicated; Y90.0 Blood alcohol level of less than 20 mg/100 ml
CPT/HCPCS: 36415; 70450; 71045; 80048; 80076; 80305; 80307; 85025; 85730; 93005; 96374; 96376; 99285; J2060 ×2; J7030; G0480

== ENCOUNTER 2021-05-25 22:52 | Emergency (ER) | payer MEDICAID ==
[~2021-05-25] VITALS: Ht 185.4 cm; Wt 70.8 kg
--- NOTE | 2021-05-25 23:15 | NUR ---
TO ER BED 13. [id number] FROM HOME C/O OD "TOOK METH AND ALCOHOL AND 4PM", -SI . PT DENIES ANY CHEST PAIN. NOT IN RESPIRATORY DISTRESS. HAND SHAKING NOTED. CONNECTED TO MONITOR. AWAITING MD LOERA
[2021-05-25] MEDS ORDERED: LORAZEPAM INJ 2 MG/ML VIAL ONE (23:19)
[2021-05-25] MEDS ORDERED: IV NS 0.9% 1,000 ML BAG IV ONE (23:30)
[2021-05-25] MEDS ORDERED: LORAZEPAM INJ 2 MG/ML VIAL IVP ONE (23:30)
--- NOTE | 2021-05-25 23:32 | NUR ---
LFA #20G S/L; PATENT AND INTACT. BLOOD COLLECTED AND SENT TO LAB
--- NOTE | 2021-05-25 23:32 | NUR ---
OFFERED PT URINAL; NOT ABLE TO URINATE AT THIS TIME. WILL F/U LATER
[2021-05-25 23:38] LABS: BASOPHILS % (AUTO) 0.3 % (0.0-2.0); EOSINOPHILS % (AUTO) 0.2 % (0.0-6.0); HEMATOCRIT 39 % (39-51); HEMOGLOBIN 13.1 g/dL (13.5-17.5); LYMPHOCYTES # (AUTO) 0.9 K/uL (0.8-4.8); LYMPHOCYTES % (AUTO) 13.6 % (20.0-44.0); MEAN CORPUSCULAR HGB CONC 34 g/dl (31.0-36.0); MEAN CORPUSCULAR VOLUME 103 fL (80-96); MONOCYTES # (AUTO) 0.7 K/uL (0.1-1.30); MONOCYTES % (AUTO) 11.1 % (2.0-12.0); NEUTROPHILS # (AUTO) 4.9 K/uL (1.8-8.9); NEUTROPHILS % (AUTO) 74.8 % (43.0-81.0); PLATELET COUNT (AUTO) 199 K/uL (150-450); RED BLOOD CELL COUNT(AUTO) 3.75 MIL/uL (4.5-6.0); WHITE BLOOD COUNT (AUTO) 6.5 K/uL (4.3-11.0)
[2021-05-25 23:51] LABS: CALCIUM, SERUM 9.3 mg/dL (8.5-10.1); CARBON DIOXIDE 30 mmol/L (21-32); CHLORIDE 96 mmol/L (98-107); CREATININE 0.9 mg/dL (0.6-1.3); GLUCOSE 209 mg/dL (74-106); POTASSIUM 3.1 mmol/L (3.5-5.1); SODIUM SERUM 134 mmol/L (136-145); UREA NITROGEN, BLOOD 7 mg/dL (7-18)
[2021-05-25 23:56] LABS: ALANINE AMINOTRANSFERASE 60 U/L (12-78); ALBUMIN 3.8 g/dL (3.4-5.0); ALCOHOL, BLOOD < 3 mg/dL (0-0); ALKALINE PHOSPHATASE 94 U/L (46-116); ASPARTATE AMINOTRANSFERASE 86 U/L (15-37); BILIRUBIN,DIRECT 0.3 mg/dL (0.0-0.2); BILIRUBIN,TOTAL 1.4 mg/dL (0.2-1.0)
[2021-05-25 23:59] LABS: ACETAMINOPHEN 0 ug/ml (10-30)
[2021-05-26] MEDS ORDERED: POTASSIUM CHLORIDE 20 MEQ TAB.PRT.SR PO ONE ×2 (00:01)
--- NOTE | 2021-05-26 00:06 | NUR ---
URINE COLLECTED AND SENT TO LAB
[2021-05-26 00:28] VITALS: BP 140/83
[2021-05-26 00:35] LABS: BILIRUBIN,URINE NEGATIVE (NEGATIVE); COLOR,URINE YELLOW (YELLOW); LEUKOCYTE ESTERASE ,URINE NEGATIVE (NEGATIVE); NITRITE, URINE NEGATIVE (NEGATIVE); PH,URINE 6.5 (5.0-8.0); PROTEIN,URINE NEGATIVE (NEGATIVE); UGLUCOSE NEGATIVE (NEGATIVE); UROBILINOGEN,URINE 0.2 EU/dL (0.2)
[2021-05-26] MEDS ORDERED: CLID1CAP PO (01:08)
[2021-05-26] MEDS ORDERED: CHLO25CA22 PO (01:08)
--- NOTE | 2021-05-26 01:19 | NUR ---
IV removed. Catheter intact and site benign. Pressure and 4x4 applied to site. No bleeding noted.
--- NOTE | 2021-05-26 01:23 | NUR ---
Patient discharged to home in stable condition. Rx and Written and verbal after care instructions given. Patient verbalizes understanding of instruction.
== END 2021-05-26 01:24 | disposition home or self-care (01) ==
LOC: ER 22:58
DX: F10.139 Alcohol abuse with withdrawal, unspecified (principal); G40.509 Epileptic seizures related to external causes, not intractable, without status epilepticus; E87.6 Hypokalemia; F41.9 Anxiety disorder, unspecified; F17.200 Nicotine dependence, unspecified, uncomplicated; Z86.69 Personal history of other diseases of the nervous system and sense organs; Z79.899 Other long term (current) drug therapy; Y90.0 Blood alcohol level of less than 20 mg/100 ml
CPT/HCPCS: 36415; 80048; 80076; 80143; 80307; 80320; 81003; 82962; 85025; 93005; 96361; 96374; 99284; J2060; J7030; G0480

== ENCOUNTER 2021-07-14 14:39 | Emergency (ER) | payer MEDICAID ==
[~2021-07-14] VITALS: Ht 185.4 cm; Wt 67.1 kg
[~2021-07-14 14:39] MED LIST: CHLO25CA22 PO; CLID1CAP PO
--- NOTE | 2021-07-14 14:43 | NUR ---
TO ER BED 13, [id number] FROM THE [address]RE[address], PER EMS REPORT, REY CALLED THEM TO BRING PATIENT TO ER DUE NOT FEELING WELL FROM DRINKING ALL NIGHT LAST NIGHT, AAOX2, BREATHING EVEN AND NON LABORED, AWAITING MD ORDERS
--- NOTE | 2021-07-14 14:53 | NUR ---
PT REFUSED LABS TO BE DRAWN, MD AWARE.
[2021-07-14 16:03] LABS: BASOPHILS % (AUTO) 0.7 % (0.0-2.0); EOSINOPHILS % (AUTO) 3.1 % (0.0-6.0); HEMATOCRIT 40 % (39-51); HEMOGLOBIN 13.5 g/dL (13.5-17.5); LYMPHOCYTES # (AUTO) 1.8 K/uL (0.8-4.8); LYMPHOCYTES % (AUTO) 42.8 % (20.0-44.0); MEAN CORPUSCULAR HGB CONC 34 g/dl (31.0-36.0); MEAN CORPUSCULAR VOLUME 103 fL (80-96); MONOCYTES # (AUTO) 0.3 K/uL (0.1-1.30); MONOCYTES % (AUTO) 7.3 % (2.0-12.0); NEUTROPHILS # (AUTO) 1.9 K/uL (1.8-8.9); NEUTROPHILS % (AUTO) 46.1 % (43.0-81.0); PLATELET COUNT (AUTO) 263 K/uL (150-450); RED BLOOD CELL COUNT(AUTO) 3.92 MIL/uL (4.5-6.0); WHITE BLOOD COUNT (AUTO) 4.1 K/uL (4.3-11.0)
[2021-07-14 16:17] LABS: CALCIUM, SERUM 7.7 mg/dL (8.5-10.1); CARBON DIOXIDE 26 mmol/L (21-32); CHLORIDE 106 mmol/L (98-107); CREATININE 0.7 mg/dL (0.6-1.3); GLUCOSE 173 mg/dL (74-106); POTASSIUM 3.2 mmol/L (3.5-5.1); SODIUM SERUM 141 mmol/L (136-145); UREA NITROGEN, BLOOD 4 mg/dL (7-18)
[2021-07-14 16:26] LABS: ALANINE AMINOTRANSFERASE 40 U/L (12-78); ALBUMIN 3.2 g/dL (3.4-5.0); ALCOHOL, BLOOD 540 mg/dL (0-0); ALKALINE PHOSPHATASE 96 U/L (46-116); ASPARTATE AMINOTRANSFERASE 80 U/L (15-37); BILIRUBIN,DIRECT 0.1 mg/dL (0.0-0.2); BILIRUBIN,TOTAL 0.5 mg/dL (0.2-1.0); TOTAL PROTEIN, SERUM 7.2 g/dL (6.4-8.2)
[2021-07-14 16:32] LABS: ACETAMINOPHEN < 0 ug/ml (10-30)
[2021-07-14] MEDS ORDERED: POTASSIUM CHLORIDE 20 MEQ TAB.PRT.SR PO ONE ×2 (17:00→17:29)
[2021-07-14 17:14] LABS: LYMPHOCYTES % (MANUAL) 40 % (16-48); MONOCYTES % (MANUAL) 2 % (0-11.0); NEUTROPHILS % (MANUAL) 58 (42-76)
--- NOTE | 2021-07-14 18:00 | NUR ---
CALLED LAB TO FOLLOW UP URINE RESULT.
[2021-07-14 18:57] LABS: BILIRUBIN,URINE NEGATIVE (NEGATIVE); COLOR,URINE YELLOW (YELLOW); LEUKOCYTE ESTERASE ,URINE NEGATIVE (NEGATIVE); NITRITE, URINE NEGATIVE (NEGATIVE); PROTEIN,URINE NEGATIVE (NEGATIVE); UGLUCOSE NEGATIVE (NEGATIVE); UROBILINOGEN,URINE 0.2 EU/dL (0.2)
[2021-07-14] MEDS: LORAZEPAM 1 MG TABLET PO ONE ×2 (21:30→22:40)
[2021-07-14] MEDS ORDERED: LORAZEPAM 1 MG TABLET ONE (22:31)
[2021-07-14] MEDS ORDERED: CHLO25CA22 PO (23:17)
--- NOTE | 2021-07-15 04:25 | NUR ---
Patient discharged to home in stable condition. RX Written and verbal after care instructions given. Patient verbalizes understanding of instruction. PT ambulatory with a steady gait. Belongings returned to PT.
[2021-07-15 04:32] VITALS: BP 130/77
== END 2021-07-15 04:33 | disposition home or self-care (01) ==
LOC: ER 14:42
DX: F10.129 Alcohol abuse with intoxication, unspecified (principal); E87.6 Hypokalemia; F41.9 Anxiety disorder, unspecified; Z86.69 Personal history of other diseases of the nervous system and sense organs; Z79.899 Other long term (current) drug therapy; Y90.8 Blood alcohol level of 240 mg/100 ml or more
CPT/HCPCS: 36415; 80048-TC; 80076-TC; 85025-TC; G0480

== ENCOUNTER 2021-08-03 15:07 | Emergency (ER) | payer MEDICAID ==
[~2021-08-03] VITALS: Ht 185.4 cm; Wt 65.8 kg
--- NOTE | 2021-08-03 15:14 | NUR ---
TO ER BED 15, [id number] FROM THE STREET ADMITS TO ETOH, WANTS RESOURCES FOR REHAB, CONNECTED TO MONITOR, AWAITING MD ORDERS
--- NOTE | 2021-08-03 15:23 | NUR ---
security at bedside for wanding.
--- NOTE | 2021-08-03 15:29 | NUR ---
URINE COLLECTED AND SENT TO THE LAB
--- NOTE | 2021-08-03 16:11 | NUR ---
SS Note: Pt. Is a 50-year-old male who demonstrates adequate insight to the reason for hospitalization. Per EMR, pt. was brought in by ambulance from streets due to ETOH. Pt. was oriented x2-3, alert, and was hardly cooperative. Pt. is currently intoxicated and was not able to provide accurate information. During interview, pt. appeared unkempt, and his speech was at a normal rate. Pt. reported that he drinks alcohol and smokes cigarettes. Pt. denied drinking prior to coming to hospital. Pt. states that he lives by himself. SW was not able to do a full assessment due to pt. being intoxicated. SW provided pt. with resources regarding rehab. Plan: SW provided available resources and pt. accepted. SW was not able to do a full assessment due to pt. being intoxicated. SW provided pt. with resources regarding rehab. Resources Provided: Substance Abuse resources provided included: [facility] Substance Abuse Self-Helpline ([facility]) ; [facility] [address] Counts Include [address] [facility]. [place] [id number] ; [facility] [address] [facility] [phone] ; [facility] [address] [facility] [phone] ; [facility] [address] [facility] [phone] ; [facility] [address] [facility] [address] ; [facility] [address] [facility] [phone] ; [facility] Substance Abuse Helpline([facility])-[facility] ; [facility] ; [employer] [place]; [facility] [place]; [facility] [place]; [facility]; [facility]; Alcoholics Anonymous -[facility]; [place] ; Marijuana Anonymous [facility]; Narcotics Anonymous www.na.org;
[2021-08-03 16:29] LABS: BASOPHILS % (AUTO) 1.2 % (0.0-2.0); EOSINOPHILS % (AUTO) 5.5 % (0.0-6.0); HEMATOCRIT 38 % (39-51); LYMPHOCYTES # (AUTO) 2.1 K/uL (0.8-4.8); LYMPHOCYTES % (AUTO) 48.1 % (20.0-44.0); MEAN CORPUSCULAR HGB CONC 34 g/dl (31.0-36.0); MEAN CORPUSCULAR VOLUME 101 fL (80-96); MONOCYTES # (AUTO) 0.4 K/uL (0.1-1.30); MONOCYTES % (AUTO) 9.5 % (2.0-12.0); NEUTROPHILS # (AUTO) 1.5 K/uL (1.8-8.9); NEUTROPHILS % (AUTO) 35.7 % (43.0-81.0); PLATELET COUNT (AUTO) 333 K/uL (150-450); RED BLOOD CELL COUNT(AUTO) 3.77 MIL/uL (4.5-6.0); WHITE BLOOD COUNT (AUTO) 4.3 K/uL (4.3-11.0)
[2021-08-03 16:57] LABS: ALBUMIN 3.6 g/dL (3.4-5.0); BILIRUBIN,DIRECT 0.1 mg/dL (0.0-0.2); BILIRUBIN,TOTAL 0.5 mg/dL (0.2-1.0); CALCIUM, SERUM 8.2 mg/dL (8.5-10.1); CREATININE 0.8 mg/dL (0.6-1.3); POTASSIUM 3.9 mmol/L (3.5-5.1); TOTAL PROTEIN, SERUM 7.6 g/dL (6.4-8.2)
[2021-08-03 17:44] LABS: BILIRUBIN,URINE NEGATIVE (NEGATIVE); COLOR,URINE YELLOW (YELLOW); LEUKOCYTE ESTERASE ,URINE NEGATIVE (NEGATIVE); NITRITE, URINE NEGATIVE (NEGATIVE); PH,URINE 5.5 (5.0-8.0); PROTEIN,URINE NEGATIVE (NEGATIVE); UGLUCOSE NEGATIVE (NEGATIVE); UROBILINOGEN,URINE 0.2 EU/dL (0.2)
--- NOTE | 2021-08-03 19:39 | NUR ---
The patient is alert and oriented x4. In room air and denies SOB. Respiration regular and unlabored. Denies pain. The patient has stable gait. Patient discharged to home in stable condition. Written and verbal after care instructions given. Patient verbalizes understanding of instruction.
[2021-08-03 19:40] VITALS: BP 120/67
== END 2021-08-03 19:40 | disposition home or self-care (01) ==
LOC: ER 15:10
DX: F10.129 Alcohol abuse with intoxication, unspecified (principal); F41.9 Anxiety disorder, unspecified; F17.200 Nicotine dependence, unspecified, uncomplicated; Z79.899 Other long term (current) drug therapy; Z86.69 Personal history of other diseases of the nervous system and sense organs; Y90.8 Blood alcohol level of 240 mg/100 ml or more
CPT/HCPCS: 36415; 80048-TC; 80076-TC; 83690-TC; 85025-TC; G0480

== ENCOUNTER 2021-10-23 07:38 | Emergency (ER) | payer MEDICAID ==
[~2021-10-23] VITALS: Ht 182.9 cm; Wt 70.3 kg
[2021-10-23] MEDS ORDERED: LORAZEPAM INJ 2 MG/ML VIAL ONE ×2 (07:56→10:07)
[2021-10-23] MEDS ORDERED: LORAZEPAM INJ 2 MG/ML VIAL IV ONE ×2 (08:00→09:30)
[2021-10-23 08:01] LABS: BASOPHILS % (AUTO) 0.3 % (0.0-2.0); HEMATOCRIT 41 % (39-51); HEMOGLOBIN 13.6 g/dL (13.5-17.5); LYMPHOCYTES % (AUTO) 41.1 % (20.0-44.0); MEAN CORPUSCULAR HGB CONC 33 g/dl (31.0-36.0); MEAN CORPUSCULAR VOLUME 99 fL (80-96); MONOCYTES # (AUTO) 0.4 K/uL (0.1-1.30); MONOCYTES % (AUTO) 8.1 % (2.0-12.0); NEUTROPHILS # (AUTO) 2.3 K/uL (1.8-8.9); NEUTROPHILS % (AUTO) 46.5 % (43.0-81.0); PLATELET COUNT (AUTO) 176 K/uL (150-450); RED BLOOD CELL COUNT(AUTO) 4.15 MIL/uL (4.5-6.0); WHITE BLOOD COUNT (AUTO) 4.9 K/uL (4.3-11.0)
[2021-10-23 08:12] LABS: CALCIUM, SERUM 8.8 mg/dL (8.5-10.1); CREATININE 0.7 mg/dL (0.6-1.3); POTASSIUM 4.2 mmol/L (3.5-5.1)
[2021-10-23 08:18] LABS: ALBUMIN 3.8 g/dL (3.4-5.0); BILIRUBIN,DIRECT 0.2 mg/dL (0.0-0.2); BILIRUBIN,TOTAL 0.9 mg/dL (0.2-1.0); TOTAL PROTEIN, SERUM 7.7 g/dL (6.4-8.2)
[2021-10-23] MEDS ORDERED: CHLO25CA22 PO (10:46)
[2021-10-23 11:11] VITALS: BP 110/66
--- NOTE | 2021-10-23 11:11 | NUR ---
Patient discharged to home in stable condition. Written and verbal after care instructions given. Patient verbalizes understanding of instruction.IV removed. Catheter intact and site benign. Pressure and 4x4 applied to site. No bleeding noted.
== END 2021-10-23 11:11 | disposition home or self-care (01) ==
LOC: ER 07:41
DX: F10.139 Alcohol abuse with withdrawal, unspecified (principal); F41.9 Anxiety disorder, unspecified; F17.200 Nicotine dependence, unspecified, uncomplicated; Z79.899 Other long term (current) drug therapy; Y90.6 Blood alcohol level of 120-199 mg/100 ml
CPT/HCPCS: 99284; 96374; 96376; 85025; 80048; 80076; 36415; 85730; 80320; J2060 ×2; G0480

== ENCOUNTER 2022-06-20 14:09 | Emergency (ER) | payer MEDICAID ==
[~2022-06-20] VITALS: Ht 185.4 cm; Wt 68.9 kg
--- NOTE | 2022-06-20 14:10 | NUR ---
BIB RA 102 FROM A LONG TERM, FELL DOWN FROM HIS CHAIR DURING A SEIZURE EPISODE, BLOOD SUGAR 190. PLACED IN BED, AAOX3, FOLLOWS COMMAND, BREATHING EVEN AND UNLABORED SATURATING AT 96%RA
[2022-06-20] MEDS ORDERED: LORAZEPAM INJ 2 MG/ML VIAL ONE (16:00)
[2022-06-20] MEDS ORDERED: IV NS 0.9% 1,000 ML BAG IV ONE ×2 (16:00)
[2022-06-20] MEDS ORDERED: LORAZEPAM INJ 2 MG/ML VIAL IVP ONE (16:00)
[2022-06-20] MEDS ORDERED: Thiamine 100 MG in IV D5W 50 ML IV SCH (16:00)
--- NOTE | 2022-06-20 16:00 | NUR ---
BUSHING AND BROACH OPERATOR AT BEDSIDE
[2022-06-20 16:36] LABS: BASOPHILS % (AUTO) 0.3 % (0.0-2.0); EOSINOPHILS % (AUTO) 0.1 % (0.0-6.0); HEMATOCRIT 39 % (39-51); HEMOGLOBIN 13.2 g/dL (13.5-17.5); LYMPHOCYTES # (AUTO) 0.6 K/uL (0.8-4.8); LYMPHOCYTES % (AUTO) 7.2 % (20.0-44.0); MEAN CORPUSCULAR HGB CONC 34 g/dl (31.0-36.0); MEAN CORPUSCULAR VOLUME 96 fL (80-96); MONOCYTES # (AUTO) 0.9 K/uL (0.1-1.30); MONOCYTES % (AUTO) 10.4 % (2.0-12.0); NEUTROPHILS # (AUTO) 7.4 K/uL (1.8-8.9); PLATELET COUNT (AUTO) 352 K/uL (150-450); RED BLOOD CELL COUNT(AUTO) 4.07 MIL/uL (4.5-6.0)
[2022-06-20 16:46] LABS: CALCIUM, SERUM 9.8 mg/dL (8.5-10.1); CARBON DIOXIDE 30 mmol/L (21-32); CHLORIDE 99 mmol/L (98-107); CREATININE 0.9 mg/dL (0.6-1.3); GLUCOSE 190 mg/dL (74-106); POTASSIUM 3.8 mmol/L (3.5-5.1); SODIUM SERUM 138 mmol/L (136-145); UREA NITROGEN, BLOOD 8 mg/dL (7-18)
[2022-06-20 16:52] LABS: ALANINE AMINOTRANSFERASE 67 U/L (12-78); ALKALINE PHOSPHATASE 93 U/L (46-116); ASPARTATE AMINOTRANSFERASE 66 U/L (15-37); BILIRUBIN,DIRECT 0.2 mg/dL (0.0-0.2); BILIRUBIN,TOTAL 0.8 mg/dL (0.2-1.0)
[2022-06-20 16:53] LABS: ALCOHOL, BLOOD < 3 mg/dL (0-0)
[2022-06-20 17:00] LABS: THYROID STIMULATING HORMONE 2.031 uIU/mL (0.358-3.74)
[2022-06-20] MEDS ORDERED: CHLO25CA22 PO (19:13)
[2022-06-20] MEDS ORDERED: CHLORDIAZEPOXIDE HCL 25 MG CAPSULE ONE (19:28)
[2022-06-20] MEDS ORDERED: CHLORDIAZEPOXIDE HCL 25 MG CAPSULE PO ONE (19:30)
--- NOTE | 2022-06-20 20:18 | NUR ---
IV removed. Catheter intact and site benign. Pressure and 4x4 applied to site. No bleeding noted.Patient discharged to home in stable condition. Written and verbal after care instructions given. Patient verbalizes understanding of instruction.
[2022-06-20 20:40] VITALS: BP 130/85
== END 2022-06-20 20:18 | disposition home or self-care (01) ==
LOC: ER 14:51
DX: R56.9 Unspecified convulsions (principal); F10.139 Alcohol abuse with withdrawal, unspecified; F41.9 Anxiety disorder, unspecified; Z60.2 Problems related to living alone; Y90.0 Blood alcohol level of less than 20 mg/100 ml
CPT/HCPCS: 99285; 96365; 51701; 96375; 93005; 71045; 70450; 82140; 85025; 80048; 80076; 36415; 84443; 82962; 80320; J2060; J7060; J7030; J3411; A4223; G0480

== ENCOUNTER 2024-09-28 17:05 | Emergency (ER) | payer MEDICAID ==
[~2024-09-28] VITALS: Ht 172.7 cm; Wt 59.4 kg
[2024-09-28] MEDS: KETOROLAC TROMETHAMINE INJ 30 MG/ML VIAL IM ONE (18:06)
[2024-09-28 19:00] VITALS: BP 130/88; TEMP 98.9; O2SAT 98
== END 2024-09-28 19:01 | disposition home or self-care (01) ==
LOC: ER 17:13
DX: M25.512 Pain in left shoulder (principal); F17.200 Nicotine dependence, unspecified, uncomplicated; F41.9 Anxiety disorder, unspecified; R56.9 Unspecified convulsions; Z60.2 Problems related to living alone; Z79.899 Other long term (current) drug therapy; W01.0XXA Fall on same level from slipping, tripping and stumbling without subsequent striking against object, initial encounter; Y93.89 Activity, other specified; Y92.89 Other specified places as the place of occurrence of the external cause; Y99.8 Other external cause status
CPT/HCPCS: 99284; 96372; 73060; 73030; J1885